=== PATIENT | male | born 1960 | race Caucasian/White ===

== ENCOUNTER 2019-01-12 14:35 | Inpatient (IN) | payer OTHER ==
[~2019-01-12 14:35] MED LIST: EPINEPHRINE INJ 1 MG/10 ML DISP.SYRIN ONE; MAGNESIUM SULFATE PF/INJ 40 MEQ/10 ML SDV ONE; SODIUM BICARBONATE 8.4% INJ 50 MEQ/50 ML DISP.SYRIN ONE
[2019-01-12] MEDS ORDERED: DEXTROSE 50%-WATER 25 GM/50 ML DISP.SYRIN IV ONE ×2 (14:55→17:30)
[2019-01-12] MEDS ORDERED: NORMAL SALINE 1000 ML 1,000 ML IV PRN ×2 (14:56→16:06)
[2019-01-12 14:57] LABS: ARTERIAL BLOOD BASE EXCESS -4.8 mmol/L; ARTERIAL BLOOD H2CO3 2.98 mmol/L (1.05-1.35); ARTERIAL BLOOD HCO3 28.4 mmol/L (20-24); ARTERIAL BLOOD O2 SATURATION 91.1 % (94-98); ARTERIAL BLOOD PO2 84.9 mmHg (80-100); ARTERIAL BLOOD TOTAL CO2 31.4 mmol/L (23-27)
[2019-01-12 14:58] LABS: ARTERIAL BLOOD FIO2 100%
[2019-01-12 14:59] LABS: ARTERIAL BLOOD PCO2 98.9 mmHg (35-45)
[2019-01-12 15:00] LABS: ARTERIAL BLOOD PH 7.08 (7.35-7.45)
[2019-01-12] MEDS ORDERED: EPINEPHRINE INJ/PF 1 MG/1 ML AMPULE ONE ×9 (15:01→19:25)
[2019-01-12 15:05] LABS: HEMATOCRIT 49.2 % (37.9-51.0); HEMOGLOBIN 15.9 g/dL (13.5-17.0); MEAN CORPUSCULAR HEMOGLOBIN 35.6 pg (27.0-33.4); MEAN CORPUSCULAR HGB CONC 32.4 g/dL (32.0-36.0); MEAN CORPUSCULAR VOLUME 110 fl (80-97); PLATELET COUNT 119 10^3/uL (150-450); RED BLOOD COUNT 4.48 10^6/uL (4.35-5.55); RED CELL DISTRIBUTION WIDTH 16.1 % (11.5-14.0); WHITE BLOOD COUNT 12.5 10^3/uL (4.0-10.5)
[2019-01-12] MEDS ORDERED: VECURONIUM BROMIDE INJ 10 MG VIAL IV ONE (15:05)
[2019-01-12] MEDS ORDERED: LORAZEPAM INJ 2 MG/1 ML VIAL IV ONE (15:05)
[2019-01-12] MEDS: DEXTROSE 5%-WATER 250 ML with EPINEPHRINE/PF 1 MG IV PRN ×16 (15:07→19:07)
[2019-01-12 15:25] LABS: ABSOLUTE LYMPHOCYTES# (MANUAL) 1.8 10^3/uL (0.5-4.7); ABSOLUTE MONOCYTES # (MANUAL) 0.3 10^3/uL (0.1-1.4); BAND NEUTROPHILS % (MANUAL) 5 % (3-5); BASOPHILS % (MANUAL) 0 % (0-2); EOSINOPHILS % (MANUAL) 0 % (0-6); LYMPHOCYTES % (MANUAL) 14 % (13-45); MONOCYTES % (MANUAL) 2 % (3-13); NUCLEATED RED BLOOD CELLS 2 /100 WBC (0); SEGMENTED NEUTROPHILS % (MAN) 79 % (42-78); TOTAL CELLS COUNTED 100
[2019-01-12 15:26] LABS: ANISOCYTOSIS 1+; PLATELET COMMENT DECREASED
[2019-01-12] MEDS ORDERED: SODIUM BICARBONATE 8.4% INJ 50 MEQ/50 ML DISP.SYRIN ONE (15:40)
[2019-01-12 15:43] LABS: ALBUMIN 3.9 g/dL (3.5-5.0); ALKALINE PHOSPHATASE 94 U/L (38-126); BILIRUBIN,TOTAL 1.9 mg/dL (0.2-1.3); BLOOD UREA NITROGEN 13 mg/dL (7-20); POTASSIUM 5.3 mmol/L (3.6-5.0); TOTAL PROTEIN 7.1 g/dL (6.3-8.2)
--- NOTE | 2019-01-12 15:46 | ER Document Report ---
Entered by CORINNE GRAYSON SCRIBE 01/12/19 5227 Acting as scribe for:RIGOBERTO CARLSON IV, MD ED Resuscitation - General Chief Complaint: Cardiac Arrest Stated Complaint: CARDIAC ARREST Mode of Arrival: Medic Information source: Emergency Med Personnel Cannot obtain history due to: Unstable vital signs, Altered mental status Notes: This 58 year old male patient presents today unresponsive with a GCS of 3. History is all given by EMS as the patient has no family here is unable to provide any history himself. EMS reports that they were called for a cardiac arrest. The fire department was first to arrive on scene and found the patient in asystole, 2 rounds of CPR were administered, remained in asystole until EMS arrived. Patient was in asystole when EMS arrived, 2 doses of epinephrine were given which put the patient in SVT. Patient was in SVT for approximately 5 minutes and then coded again. In total patient was given 2 A of bicarb and 5 epinephrine prior to arrival to the hospital. On arrival here the patient was in SVT but began coding again quickly after arrival. The patient's girlfriend on scene told EMS that the patient is an alcoholic but adds that he drank much more than normal last night and was continuing to drink this morning. Girlfriend states that she left him alone last night and came back to check on him this morning, finding him still drinking. EMS states that it appears the patient fell through a glass table as he was lying unresponsive next to the glass table which was broken. Down time is unknown. Patient's last known well was approximately x1.5 hours from the time he was found down. TRAVEL OUTSIDE OF THE [place] IN LAST 30 DAYS: No - Related Data Allergies/Adverse Reactions: No Known Allergies Allergy (Unverified 01/12/19 16:03) Past Medical History - General Information source: Emergency Med Personnel Cannot obtain history due to: Unstable vital signs, Altered mental status - Social History Smoking Status: Unknown if Ever Smoked Frequency of alcohol use: Heavy Family History: Other Review of Systems - Review of Systems -: Yes ROS unobtainable due to patient's medical condition Physical Exam - General General appearance: Unresponsive In distress: Severe - HEENT Head: Normocephalic, Atraumatic - Respiratory Respiratory status: Other - bagged on arrival and immediately intubated - Abdominal Inspection: Normal Distension: No distension - Extremities General upper extremity: Normal inspection. No: Edema General lower extremity: Normal inspection. No: Edema - Neurological Neuro grossly intact: No [place] Coma Scale Eye Opening: None [place] Coma Scale Verbal: None [place] Coma Scale Motor: None [place] Coma Scale Total: 3 - Skin Skin Temperature: Cool Skin Moisture: Dry Skin Color: Normal Course - Re-evaluation Re-evalutation: 01/12/19 17:41 Patient's poor prognosis discussed with family members in the family waiting room. - Laboratory Result Diagrams: 01/12/19 14:40 01/12/19 14:40 Laboratory results interpreted by me: 01/12/19 01/12/19 01/12/19 14:40 14:40 14:40 WBC 12.5 H MCV 110 H MCH 35.6 H RDW 16.1 H Plt Count 119 L Seg Neuts % (Manual) 79 H Monocytes % (Manual) 2 L Abs Neuts (Manual) 10.5 H Carbonic Acid 2.98 H ABG pH 7.08 L* ABG pCO2 98.9 H* ABG HCO3 28.4 H ABG Total CO2 31.4 H ABG O2 Saturation 91.1 L Sodium 149.1 H Potassium 5.3 H Carbon Dioxide 19 L Anion Gap 26 H Creatinine 2.41 H Est GFR ( Amer) 34 L Est GFR (MDRD) Non-Af 28 L Glucose 55 L POC Glucose Magnesium 2.5 H Total Bilirubin 1.9 H Direct Bilirubin 1.0 H AST 4393 H Creatine Kinase 6652 H CK-MB (CK-2) NT-Pro-B Natriuret Pep Urine Blood 01/12/19 01/12/19 01/12/19 14:40 14:48 16:15 WBC MCV MCH RDW Plt Count Seg Neuts % (Manual) Monocytes % (Manual) Abs Neuts (Manual) Carbonic Acid ABG pH ABG pCO2 ABG HCO3 ABG Total CO2 ABG O2 Saturation Sodium Potassium Carbon Dioxide Anion Gap Creatinine Est GFR ( Amer) Est GFR (MDRD) Non-Af Glucose POC Glucose 65 L Magnesium Total Bilirubin Direct Bilirubin AST Creatine Kinase CK-MB (CK-2) 44.10 H NT-Pro-B Natriuret Pep 374 H Urine Blood MODERATE H - Diagnostic Test Radiology reviewed: Reports reviewed - EKG Interpretation by Me Additional EKG results interpreted by me: 01/12/19 17:41 EKG performed at 1633 hrs. on 01/12/2019 was interpreted by this MD. Findings: Normal sinus rhythm, normal axis, rate 69, P waves proceed QRS complexes, QRS complex appears narrow, there are no ST segment elevations or depressions to suggest acute myocardial ischemia or infarction. Impression normal sinus rhythm with nonspecific ST segments. - Consults dr. stone Time consulted: 14:50 Reason for consultation: 01/12/19 17:43 post cardiac arrest Consulted provider: will come to ER Procedures - Central Line Left Subclavian Time completed: 15:20 Consent obtained: No Central line pre-insertion: Sterile PPE donned, Chloraprep applied, Sterile drapes applied Central line lumen type: Triple Ultrasound guided: No Line secured with sutures: Yes Central line post-insertion: Blood return from lumens, Biopatch applied, Sutured, Sterile dressing applied, Position confirmed w/ CXR Number of attempts: 1 Complications: No - Intubation Orotracheal Time of Intubation: 14:38 Airway evaluation: Normal anatomy Mallampati Classification: Class 2 Intubation method: Orotracheal Blade type: Rodriguez Blade size: 4 Equipment used: Glidescope ETT size: 8.0 ETT secured at: Lips ETT secured at (cm): 24 Breath Sounds after Intubation: Equal End tidal CO2 confirmed: Yes Intubation Complications: No complications Critical Care Note - Critical Care Note Total time excluding time spent on procedures (mins): 60 Discharge - Discharge Clinical Impression: Cardiac arrest Condition: Critical Disposition: ADMITTED INPATIENT Admitting Provider: [facility] (Nurse Emergency) Unit Admitted: ICU I personally performed the services described in the documentation, reviewed and edited the documentation which was dictated to the scribe in my presence, and it accurately records my words and actions.
[2019-01-12 15:48] LABS: CARBON DIOXIDE 19 mmol/L (22-30); CHLORIDE 104 mmol/L (98-107)
[2019-01-12] MEDS ORDERED: NORMAL SALINE 1000 ML 1,000 ML IV ONE (15:48)
[2019-01-12] MEDS ORDERED: SODIUM BICARBONATE 8.4% INJ 50 MEQ/50 ML DISP.SYRIN IV ONE ×2 (15:48→16:20)
[2019-01-12] MEDS ORDERED: EPINEPHRINE INJ 1 MG/10 ML DISP.SYRIN ONE ×3 (15:53→20:09)
[2019-01-12 15:54] LABS: CREATINE KINASE MB 44.1 ng/mL (<4.55)
[2019-01-12 15:55] LABS: TROPONIN I 0.055 ng/mL
--- NOTE | 2019-01-12 15:56 | RADIOLOGY REPORT (SQ) ---
EXAM DESCRIPTION: CHEST SINGLE VIEW COMPLETED DATE/TIME: 01/12/2019 3:38 pm REASON FOR STUDY: post intubation COMPARISON: None. TECHNIQUE: Single frontal radiographic view of the chest acquired. NUMBER OF VIEWS: One view. LIMITATIONS: None. FINDINGS: LUNGS AND PLEURA: No pneumothorax. Left medial basilar airspace disease. No significant pleural effusion. MEDIASTINUM AND HILAR STRUCTURES: Left hilar fullness. HEART AND VASCULAR STRUCTURES: Normal size. BONES: No acute findings. HARDWARE: Endotracheal tube tip overlies the mid trachea approximately 6.5 cm above the level of the tom. Left subclavian central venous catheter tip overlies the region of the lower SVC. OTHER: No other significant finding. IMPRESSION: Endotracheal tube tip overlies the mid trachea approximately 6.5 cm above the level of t he tom. Left subclavian central venous catheter tip overlies the region of the lower SVC.No pneum othorax. Left medial basilar airspace disease. Left hilar fullness.No significant pleural effusion. TECHNICAL DOCUMENTATION: JOB ID: [id number] [place]-72 2010 [employer]- All Rights Reserved Reading location - IP/workstation name: [employer]
[2019-01-12] MEDS ORDERED: DEXTROSE 5%-WATER 250 ML with EPINEPHRINE/PF 1 MG IV PRN ×2 (16:02)
[2019-01-12] MEDS ORDERED: IPRATROPIUM/ALBUTEROL 0.5-2.5 MG/3 ML AMPUL NEB PRN (16:06)
[2019-01-12] MEDS ORDERED: VASOPRESSIN INJ 20 UNIT/1 ML VIAL ONE ×3 (16:07→20:10)
[2019-01-12] MEDS ORDERED: DEXTROSE 5%-WATER 250 ML with VASOPRESSIN 100 UNIT IV PRN ×4 (16:10→16:12)
[2019-01-12] MEDS ORDERED: ENOXAPARIN SODIUM INJ 40 MG/0.4 ML DISP.SYRIN SUBCUT SCH (16:15)
[2019-01-12 16:20] LABS: ASPARTATE AMINO TRANSFERASE 4393 U/L (17-59); CREATINE KINASE 6652 U/L (55-170)
[2019-01-12 16:21] LABS: ANION GAP 26 (5-19)
[2019-01-12 16:22] LABS: GLUCOSE 55 mg/dL (75-110)
[2019-01-12] MEDS ORDERED: ENOXAPARIN SODIUM INJ 40 MG/0.4 ML DISP.SYRIN SUBCUT ONE (16:30)
[2019-01-12 16:33] LABS: APPEARANCE,URINE CLEAR; BILIRUBIN,URINE NEGATIVE (NEGATIVE); COLOR,URINE YELLOW; GLUCOSE, URINE NEGATIVE (NEGATIVE); KETONES,URINE NEGATIVE (NEGATIVE); LEUKOCYTE ESTERASE,URINE NEGATIVE (NEGATIVE); NITRITE,URINE NEGATIVE (NEGATIVE); PROTEIN,URINE NEGATIVE (NEGATIVE); URINE SPECIFIC GRAVITY 1.004; UROBILINOGEN,URINE NEGATIVE mg/dL (<2.0)
[2019-01-12] MEDS ORDERED: EPINEPHRINE INJ 1 MG/10 ML DISP.SYRIN IV ONE (16:36)
--- NOTE | 2019-01-12 16:50 | CRITICAL CARE ADMISSION REPORT ---
HPI Date:: 01/12/19 Time:: 15:00 Reason for ICU Reason:: Post cardiac arrest, intubated on high dose pressors. HPI: This patient is a 58 yo man with a history of alcoholic drinking as stated by girlfriend to ED MD. He collapsed at home, fell onto a glass table and was in full cardiac arrest by the time EMS got to him. He was intubated and ACLS protocol initiated. When I saw him he had a pulse bur unstable BP 50-100 with a systolic mosly in the 50s. He is now on high dose epi drip with vasopressin as well. He is a full code but the prognosis for a good functional recovery is poor. History obtained from:: ER MD. No old records - Diagnosis/Plan (1) Cardiac arrest Is this a current diagnosis for this admission?: Yes Plan: The exact cause is not clear but it seems to be sudden. This argues for a malignant rythym disturbance (2) Alcohol abuse Is this a current diagnosis for this admission?: Yes Plan: Long standing. - . Plan Summary: No other history known. Perhaps more can be obtained from family. Social/Family History - Social History Smoking Status: Unknown if Ever Smoked Frequency of Alcohol Use: Heavy - Medication/Allergies Allergies/Adverse Reactions: No Known Allergies Allergy (Unverified 01/12/19 16:03) Review of Systems ROS unobtainable: Due to endotracheal tube Physical Exam Vital Signs: Intake & Output 01/11/19 01/12/19 01/13/19 06:59 06:59 06:59 Intake Total 1999 Balance 1999 General appearance: PRESENT: no acute distress Head exam: PRESENT: atraumatic, normocephalic Eye exam: PRESENT: other - pinpoint and fixed Mouth exam: PRESENT: moist, tongue midline Neck exam: ABSENT: carotid bruit, JVD, lymphadenopathy, thyromegaly Respiratory exam: PRESENT: clear to auscultation dale, unlabored Cardiovascular exam: PRESENT: tachycardia GI/Abdominal exam: PRESENT: normal bowel sounds, soft. ABSENT: distended, guarding, mass, organolmegaly, rebound, tenderness Rectal exam: PRESENT: deferred Gentrourinary exam: PRESENT: indwelling catheter Extremities exam: PRESENT: full ROM, other - Several small lacerations from fall. Musculoskeletal exam: PRESENT: normal inspection Neurological exam: PRESENT: other - Unresponsive Skin exam: PRESENT: dry, normal color Tubes/Lines: PRESENT: Endotracheal Tube, Central Line, Arterial Catheter, Nasogastic Tube Laboratory/Radiographs Laboratory Results: 01/12/19 14:40 01/12/19 14:40 01/12/19 01/12/19 01/12/19 14:40 14:40 14:40 WBC 12.5 H RBC 4.48 Hgb 15.9 Hct 49.2 MCV 110 H MCH 35.6 H MCHC 32.4 RDW 16.1 H Plt Count 119 L Seg Neutrophils % Not Reportable Carbonic Acid 2.98 H HCO3/H2CO3 Ratio 9:1 ABG pH 7.08 L* ABG pCO2 98.9 H* ABG pO2 84.9 ABG HCO3 28.4 H ABG O2 Saturation 91.1 L ABG Base Excess -4.8 FiO2 100% Sodium 149.1 H Potassium 5.3 H Chloride 104 Carbon Dioxide 19 L Anion Gap 26 H BUN 13 Creatinine 2.41 H Est GFR ( Amer) 34 L Glucose 55 L Calcium 10.0 Magnesium 2.5 H Total Bilirubin 1.9 H AST 4393 H Alkaline Phosphatase 94 Total Protein 7.1 Albumin 3.9 01/12/19 01/12/19 01/12/19 14:40 14:40 14:40 Creatine Kinase 6652 H Cancelled CK-MB (CK-2) 44.10 H Troponin I 0.055 NT-Pro-B Natriuret Pep 374 H Impressions: Chest X-Ray 01/12/19 00:00 IMPRESSION: Endotracheal tube tip overlies the mid trachea approximately 6.5 cm above the level of the tom. Left subclavian central venous catheter tip overlies the region of the lower SVC.No pneumothorax. Left medial basilar airspace disease. Left hilar fullness.No significant pleural effusion. EKG: Sinus rythym with no obvious ischemia All labs, radiographs, diagnostic studies and EKGs were personally reviewed: Yes In addition, reports of radiographic and diagnostic studies were read: Yes Critical Time Critical Time (minutes): 60 -: The care of a critically ill patient is dynamic. This note represents a static moment in the admission process. orders and treatments may be given simulataneously and urgentl, and time is not sales representative [employer] furniture of the treatment process. This patient requires Critical Care secondary to life threating organ or limb dysfunction. Without the need for Critical Care services, the patient is at risk for increasid mortality and morbidity.
[2019-01-12 16:54] LABS: URINE AMPHETAMINES SCREEN NEGATIVE; URINE BARBITURATES SCREEN NEGATIVE; URINE BENZODIAZEPINES SCREEN NEGATIVE; URINE COCAINE SCREEN NEGATIVE; URINE MARIJUANA (THC) SCREEN NEGATIVE; URINE METHADONE SCREEN NEGATIVE; URINE PHENCYCLIDINE SCREEN NEGATIVE
[2019-01-12] MEDS ORDERED: FAMOTIDINE INJ/PF 20 MG/2 ML SDV IV SCH (18:00)
--- NOTE | 2019-01-12 19:16 | RADIOLOGY REPORT (SQ) ---
EXAM DESCRIPTION: CHEST SINGLE VIEW COMPLETED DATE/TIME: 01/12/2019 7:00 pm REASON FOR STUDY: cental line placement - hematoma post compressions COMPARISON: Earlier exam same date NUMBER OF VIEWS: One view. TECHNIQUE: Single frontal radiographic image of the chest acquired. LIMITATIONS: None. FINDINGS: ENDOTRACHEAL TUBE: Appropriate location. OTHER SUPPORT DEVICES: Stable left subclavian central venous catheter. CHANGES IN RADIOGRAPHIC FINDINGS: None. Stable appearance. HARDWARE: None in the chest. OTHER: No other significant finding. IMPRESSION: STABLE APPEARANCE OF THE CHEST. TECHNICAL DOCUMENTATION: JOB ID: [id number] [place]-72 2010 [employer]- All Rights Reserved Reading location - IP/workstation name: [employer]
--- NOTE | 2019-01-12 20:06 | EKG REPORT ---
SEVERITY:- BORDERLINE ECG - SINUS RHYTHM BORDERLINE T ABNORMALITIES, ANT-LAT LEADS : Confirmed by: Ml Vasquez MD 12-Jan-2019 20:05:48
[2019-01-12 22:22] VITALS: BP 49/28
--- NOTE | 2019-01-13 00:41 | Death Summary ---
Summary Date : 01/13/19 Time of :: 12:05 Autopsy: No Resuscitation Status: Do Not Resuscitate - Family stated that he has a living will that indicated DO NOT RESUSCITATE. - Final Diagnosis (1) Cardiac arrest Is this a current diagnosis for this admission?: Yes (2) Alcohol abuse Is this a current diagnosis for this admission?: Yes Hospital Course:: Following multiple rounds of CPR in the emergency department, patient was transferred to the ICU for further care. Extensive conversation with his family revealed that he had previously made a living well and stated on multiple occasions that he would not want to be resuscitated in the event of a cardiac arrest. Conference had with family who agreed to no longer continue resus citative efforts. His CODE STATUS was changed to DO NOT RESUSCITATE as per family's wishes. The decision was made to continue current level of care as the family hoped that patient's daughter would be able to be present at time of . As it would be several days before she could arrive, the family understood that this was not probable. We continued epinephrine and vasoactive medications while in the ICU however, within several hours, patient became asystolic and without a pulse. I was called to the bedside to evaluate the patient. He had no breathing effort, no pulse and no heart sounds. Pupils were fixed. Patient was pronounced at 12:06 AM on 01/13/2019. Family was at the bedside and made aware that he had .
== END 2019-01-12 23:06 | disposition left against medical advice (07) | DRG 296 ==
LOC: ER 14:35 → EH 16:26 → ICU 19:25
PROVIDERS: ADMIT Anesthesiology; ATTEND Anesthesiology
PROC: 0BH17EZ Insertion of Endotracheal Airway into Trachea, Via Natural or Artificial Opening (ICD-10-PCS; principal; 2019-01-12)
PROC: 5A1935Z Respiratory Ventilation, Less than 24 Consecutive Hours (ICD-10-PCS; 2019-01-12)
PROC: 02HV33Z Insertion of Infusion Device into Superior Vena Cava, Percutaneous Approach (ICD-10-PCS; 2019-01-12)
DX: I46.9 Cardiac arrest, cause unspecified (principal); R40.2212 Coma scale, best verbal response, none, at arrival to emergency department; R40.2312 Coma scale, best motor response, none, at arrival to emergency department; R40.2112 Coma scale, eyes open, never, at arrival to emergency department; F10.10 Alcohol abuse, uncomplicated; Y90.3 Blood alcohol level of 60-79 mg/100 ml; I47.1 Supraventricular tachycardia; W18.39XA Other fall on same level, initial encounter; Y93.89 Activity, other specified; Y92.098 Other place in other non-institutional residence as the place of occurrence of the external cause
CPT/HCPCS: 36415; 70450; 71045; 80053; 80307; 81001; 82550; 82553; 82803; 82962; 83735; 83880; 84484; 85025; 86850; 86900; 86901; 93005; 93010; 94002; 96361; 96374; 96375; 99291; C1751; J0171; J2060; J3475; J3490; J7030; J7060